=== PATIENT | female | born 2000 | race American Indian/Alaskan Native ===

== ENCOUNTER 2018-02-18 00:07 | Emergency (ER) | payer SELFPAY ==
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
[2018-02-18] MEDS ORDERED: TYLENOL PO ONE (03:58)
[2018-02-18 04:34] VITALS: BP 118/64
== END 2018-02-18 04:33 | disposition home or self-care (01) ==
LOC: ED 00:07
DX: O26.891 Other specified pregnancy related conditions, first trimester (principal); S70.01XA Contusion of right hip, initial encounter; S99.921A Unspecified injury of right foot, initial encounter; Z3A.08 8 weeks gestation of pregnancy; V47.6XXA Car passenger injured in collision with fixed or stationary object in traffic accident, initial encounter; Y93.89 Activity, other specified; Y92.89 Other specified places as the place of occurrence of the external cause; Y99.8 Other external cause status
CPT/HCPCS: 99283